=== PATIENT | male | born 1960 | race Caucasian/White ===

== ENCOUNTER 2019-08-05 16:47 | Emergency (ER) | payer SELFPAY ==
--- NOTE | 2019-08-05 18:06 | ER Document Report ---
ED Medical Screen (RME) - General Chief Complaint: Leg Swelling Stated Complaint: RIGHT LEG PAIN Time Seen by Provider: 08/05/19 18:01 Primary Care Provider: REGINA MANJARREZ [Primary Care Provider] - Follow up as needed Mode of Arrival: Ambulatory Information source: Patient Notes: 58-year-old male presented to ED for pain and swelling to the right leg. He states he was diagnosed with blood clots to the right leg 7 weeks ago. He was given a 5-week supply of Xarelto but he has since lost his insurance and has not followed up yet with the primary doctor. States he has been taking baby aspirin for the last 2 weeks. Patient has a history of coronary artery disease with 1 stent. He does have a history of elevated blood pressure and cholesterol that are controlled with his medication. He also has anxiety. Oriented respirations regular nonlabored. His right leg is bluish-purple but has a very good pedal pulse. It is very swollen. And purple-colored he said is been discolored for several weeks. I have greeted and performed a rapid initial assessment of this patient. A comprehensive ED assessment and evaluation of the patient, analysis of test results and completion of medical decision making process will be conducted by an additional ED providers. - Related Data Allergies/Adverse Reactions: No Known Allergies Allergy (Verified 08/05/19 17:59) Physical Exam - Vital signs Vitals: Temp Pulse Resp BP Pulse Ox 98.0 F 110 H 18 149/96 H 96 08/05/19 16:53 08/05/19 16:53 08/05/19 16:53 08/05/19 16:53 08/05/19 16:53 Course - Vital Signs Vital signs: Temp Pulse Resp BP Pulse Ox 98.0 F 110 H 18 149/96 H 96 08/05/19 16:53 08/05/19 16:53 08/05/19 16:53 08/05/19 16:53 08/05/19 16:53 Doctor's Discharge - Discharge Referrals: REGINA MANJARREZ [Primary Care Provider] - Follow up as needed
[2019-08-05 18:35] LABS: ABSOLUTE BASOPHILS # (AUTO) 0.1 10^3/uL (0.0-0.2); ABSOLUTE EOSINOPHILS # (AUTO) 0.5 10^3/uL (0.0-0.6); ABSOLUTE LYMPHOCYTES (AUTO) 1.6 10^3/uL (0.5-4.7); ABSOLUTE MONOCYTES (AUTO) 0.9 10^3/uL (0.1-1.4); ABSOLUTE NEUT (AUTO) 10.1 10^3/uL (1.7-8.2); BASOPHILS % (AUTO) 0.4 % (0-2); EOSINOPHILS % (AUTO) 3.6 % (0-6); HEMATOCRIT 42.2 % (37.9-51.0); HEMOGLOBIN 14.2 g/dL (13.5-17.0); LYMPHOCYTES % (AUTO) 12.1 % (13-45); MEAN CORPUSCULAR HEMOGLOBIN 30.9 pg (27.0-33.4); MEAN CORPUSCULAR HGB CONC 33.6 g/dL (32.0-36.0); MEAN CORPUSCULAR VOLUME 92 fl (80-97); MONOCYTES % (AUTO) 7.1 % (3-13); PLATELET COUNT 159 10^3/uL (150-450); RED CELL DISTRIBUTION WIDTH 14.1 % (11.5-14.0); SEGMENTED NEUTROPHILS % (AUTO) 76.8 % (42-78); TOTAL CELLS COUNTED % (AUTO) 100 %; WHITE BLOOD COUNT 13.2 10^3/uL (4.0-10.5)
[2019-08-05 18:41] LABS: INTERNATIONAL RATION (INR) 1.04; PROTHROMBIN TIME 13.6 SEC (11.4-15.4)
[2019-08-05 18:42] LABS: PARTIAL THROMBOPLASTIN TIME 26.7 SEC (23.5-35.8)
[2019-08-05] MEDS ORDERED: OXYCODONE-ACETAMINOPHEN 5-325 MG TABLET PO ONE (18:50)
[2019-08-05 18:52] LABS: ALBUMIN 4.3 g/dL (3.5-5.0); ALKALINE PHOSPHATASE 73 U/L (38-126); ANION GAP 11 (5-19); ASPARTATE AMINO TRANSFERASE 19 U/L (17-59); BILIRUBIN,DIRECT 0.1 mg/dL (0.0-0.4); BILIRUBIN,TOTAL 0.3 mg/dL (0.2-1.3); BLOOD UREA NITROGEN 16 mg/dL (7-20); CALCIUM 9.9 mg/dL (8.4-10.2); CARBON DIOXIDE 31 mmol/L (22-30); CHLORIDE 100 mmol/L (98-107); GLUCOSE 108 mg/dL (75-110); TOTAL PROTEIN 7.6 g/dL (6.3-8.2)
--- NOTE | 2019-08-05 19:24 | ER Document Report ---
Entered by NICHOLE CHAPA SCRIBE 08/05/19 0435 Acting as scribe for:VIANCA PEREYRA IV, MD ED Extremity Problem, Lower - General Chief Complaint: Leg Swelling Stated Complaint: RIGHT LEG PAIN Time Seen by Provider: 08/05/19 18:01 Primary Care Provider: RAJESH STUART MD [HONORARY] - Follow up as needed Mode of Arrival: Ambulatory Information source: Patient Notes: This 58 year old male patient that presents to the emergency department today with complaints of right lower extremity pain and swelling. Patient states that he was diagnosed with a DVT in the RLE in the past and has been on xarelto for this, but has not had any in the last two weeks. Patient states that he lost his job two weeks ago and now can't afford the medication. - Related Data Allergies/Adverse Reactions: No Known Allergies Allergy (Verified 08/05/19 17:59) Past Medical History - General Information source: Patient - Social History Smoking Status: Current Every Day Smoker Cigarette use (# per day): Yes Frequency of alcohol use: None Drug Abuse: None Lives with: Family Family History: Reviewed & Not Pertinent Patient has suicidal ideation: No Patient has homicidal ideation: No Review of Systems - Review of Systems Constitutional: No symptoms reported EENT: No symptoms reported Cardiovascular: No symptoms reported Respiratory: No symptoms reported Gastrointestinal: No symptoms reported Genitourinary: No symptoms reported Male Genitourinary: No symptoms reported Musculoskeletal: See HPI, Leg swelling - right Skin: No symptoms reported Hematologic/Lymphatic: No symptoms reported Neurological/Psychological: No symptoms reported -: Yes All other systems reviewed and negative Physical Exam - Vital signs Vitals: Temp Pulse Resp BP Pulse Ox 98.0 F 110 H 18 149/96 H 96 08/05/19 16:53 08/05/19 16:53 08/05/19 16:53 08/05/19 16:53 08/05/19 16:53 Interpretation: Normal - General General appearance: Appears well, Alert - HEENT Head: Normocephalic, Atraumatic Eyes: Normal Pupils: PERRL - Respiratory Respiratory status: No respiratory distress Chest status: Nontender Breath sounds: Normal Chest palpation: Normal - Cardiovascular Rhythm: Regular Heart sounds: Normal auscultation Murmur: No - Abdominal Inspection: Normal Distension: No distension Bowel sounds: Normal Tenderness: Nontender Organomegaly: No organomegaly - Back Back: Normal, Nontender - Extremities General upper extremity: Normal inspection. No: Tender General lower extremity: Tender - Right calf, Edema - RLE, Other - Purplish red discoloration of RLE - Neurological Neuro grossly intact: Yes Cognition: Normal Orientation: AAOx4 [place] Coma Scale Eye Opening: Spontaneous [place] Coma Scale Verbal: Oriented [place] Coma Scale Motor: Obeys Commands [place] Coma Scale Total: 15 Speech: Normal Motor strength normal: LUE, RUE, LLE, RLE Sensory: Normal - Psychological Associated symptoms: Normal affect, Normal mood - Skin Skin Temperature: Warm Skin Moisture: Dry Skin Color: Normal Course - Re-evaluation Re-evalutation: 08/05/19 19:58 Results of ED MSE discussed with patient. Patient was informed that social work will be getting touch with him tomorrow to help him with getting a continued supply of Xarelto since he currently does not have insurance and cannot afford to get it himself. Emergency signs and symptoms, reasons to return to the emergency department discussed with the patient. Patient expressed understanding of reasons to return to the ED. - Vital Signs Vital signs: Temp Pulse Resp BP Pulse Ox 98.0 F 110 H 18 149/96 H 96 08/05/19 17:59 08/05/19 16:53 08/05/19 17:59 08/05/19 16:53 08/05/19 17:59 - Laboratory Result Diagrams: 08/05/19 18:13 08/05/19 18:13 Laboratory results interpreted by me: 08/05/19 08/05/19 18:13 18:13 WBC 13.2 H RDW 14.1 H Lymph % (Auto) 12.1 L Absolute Neuts (auto) 10.1 H Carbon Dioxide 31 H - Diagnostic Test Radiology reviewed: Reports reviewed Discharge - Discharge Clinical Impression: Deep vein thrombosis, lower right extremity Qualifiers: Affected thrombotic vein of extremity: unspecified vein of extremity Chronicity: unspecified Qualified Code(s): I82.401 - Acute embolism and thrombosis of unspecified deep veins of right lower extremity Condition: Good Disposition: HOME, SELF-CARE Additional Instructions: Expect a call from [facility] social work department on 08/06/2019 to help you with assistance and getting a continued supply of your blood clot medication. If for any reason you do not hear from the social work department by noon tomorrow or are unable to get your medication filled return to the emergency department immediately. Return to the Emergency Department without delay if any worse. DVT Outpatient Treatment You have deep venous thrombosis (DVT) in your leg. DVT or phlebitis is blood clots within the large deep veins. This causes redness, warmth, and tenderness of the involved area. This problem is more likely to affect people who smoke, take estrogen, have had recent surgery, have been immobile, have had previous DVT, or who have serious underlying health conditions. Keep your legs elevated. A heating pad, 20 minutes every two hours, can help with leg pain. For now, keep walking to a minimum. Don't do any physical work, lifting, or exercise. If the doctor has recommended medication for you, it's important that you take it. You will be started on a blood-thinning medication. Follow-up is important. Your medication needs to be monitored. Call or return at once if you cough blood or vomit blood, pass black or bloody stool, or have any other unusual bleeding. DVT can cause serious complications. The clots can damage the valves in the veins, leading to chronic pain and swelling. If a clot breaks loose and floats upstream, it can stick in the lungs. A clot in the lungs, called pulmonary embolism, can be life-threatening. Call the doctor or return if you develop increasing leg pain and swelling, leg discoloration, fever, chest pain, or shortness of breath. HOME CARE INSTRUCTIONS & INFORMATION: Thank you for choosing us for your medical needs. We hope you're satisfied with the care you received. After you leave, you must properly care for your problem and, at the same time, observe its progress. Any condition can change. Some illnesses can change rapidly over hours or days. If your condition worsens, return to the Emergency Department or see your physician promptly. ABOUT YOUR X-RAYS AND EKG'S: If you had an EKG or X-rays taken, they have been read by the Emergency Physician. The X-rays and EKG's will also be read by a Radiologist or Auto Service Dispatcher within 24 hours. If discrepancies are noted, you will be notified by telephone. Please be certain the ED has a correct telephone number & address where you can be reached. Also, realize that some fractures or abnormalities do not show up on initial X-rays. If your symptoms continue, see your physician. ABOUT YOUR LABORATORY TEST: If you had laboratory tests, the results have been reviewed by the Emergency Physician. Some test results (for example cultures) may not be available for several days. You will be contacted if any test result shows you need additional treatment. Please be certain the ED has a correct telephone number and address where you can be reached. ABOUT YOUR MEDICATIONS: You will receive instructions on how to take your medicine on the prescription label you receive. Additional information may be provided by the Pharmacy. If you have questions afterwards, call the ED for clarification or further instructions. Some prescribed medications may cause drowsiness. Do not perform tasks such as driving a car or operating machinery without consulting your Pharmacist. If you feel you need a refill of pain medication, your condition will need re-evaluation. Please do not call for a refill of any medication. ABOUT YOUR SIGNATURE: Signature of this document acknowledges to followin. Understanding that you received emergency treatment and that you may be released before al medical problems are known or treated. Please be certain the ED has a correct phone number & address where you can be reached. 2. Acknowledgement that you will arrange for follow-up care as recommended. 3. Authorization for the Emergency Physician to provide information to your follow-up Physician in order to maximize your care. AT ANY TIME, IF YOUR SYMPTOMS CHANGE SIGNIFICANTLY OR WORSEN OR YOU DEVELOP NEW SYMPTOMS, RETURN TO THE EMERGENCY DEPARTMENT IMMEDIATELY FOR RE-EVALUATION. OUR GOAL IS TO PROVIDE EXCELLENT MEDICAL CARE! WE HOPE THAT WE HAVE MET YOUR EXPECTATIONS DURING YOUR EMERGENCY DEPARTMENT VISIT AND THAT YOU FEEL YOU HAVE RECEIVED EXCELLENT CARE! Prescriptions: Rivaroxaban [Xarelto] 15 mg PO BID 21 Days #42 tab.ds.pk Rivaroxaban [Xarelto 10 mg Tablet] 20 mg PO DAILY 9 Days #18 tablet Rivaroxaban [Xarelto 15 mg Tablet] 15 mg PO BID 21 Days #42 tablet Referrals: RAJESH STUART MD [HONORARY] - Follow up as needed I personally performed the services described in the documentation, reviewed and edited the documentation which was dictated to the scribe in my presence, and it accurately records my words and actions.
--- NOTE | 2019-08-05 19:48 | RADIOLOGY REPORT (SQ) ---
EXAM DESCRIPTION: VENOUS UNILATERAL LOWER COMPLETED DATE/TIME: 08/05/2019 7:31 pm REASON FOR STUDY: Right lower extremity COMPARISON: None. TECHNIQUE: Grayscale and color images acquired of the right leg venous system. Selected spectral ephraim ges acquired with additional compression and augmentation maneuvers. The contralateral common femoral vein and saphenofemoral junction were also imaged. Images stored on PACS. LIMITATIONS: None. FINDINGS: COMMON FEMORAL: There is hypoechoic occlusive thrombus. FEMORAL: There is hypoechoic occlusive thrombus. POPLITEAL: There is hypoechoic occlusive thrombus. CALF VESSELS: Hypoechoic thrombus at the posterior tibial and peroneal veins. GSV and SSV: Hypoechoic thrombus noted at the GSV and SSV. ANY DEEP VENOUS INSUFFICIENCY: Not evaluated. ANY EVIDENCE OF POPLITEAL CYST: No. CONTRALATERAL COMMON FEMORAL VEIN AND SAPHENOFEMORAL JUNCTION: Normal phasicity, compression and augmentation. No visualized echogenic material on mantilla scale. No de fects on color images. IMPRESSION: Acute deep vein thrombosis and superficial vein thrombosis throughout the visualized vei ns of the right leg. COMMENT: Pertinent findings on the imaging study reported as a CRITICAL RESULT to Dr. Sanchez At19:3 7 hours on 08/05/2019. Category of Critical Result: Acute DVT and SVT. TECHNICAL DOCUMENTATION: JOB ID: [id number] [employer]- All Rights Reserved Reading location - IP/workstation name: [email or web address]
[2019-08-05] MEDS ORDERED: HYDROCODONE/ACETAMINOPHEN 5-325 MG (6 TAB/ER DISP) PO PRN (19:57)
[2019-08-05] MEDS ORDERED: ENOXAPARIN SODIUM INJ 150 MG/1 ML DISP.SYRIN SUBCUT ONE (19:57)
[2019-08-05 20:56] VITALS: BP 168/96
== END 2019-08-05 21:18 | disposition home or self-care (01) ==
LOC: ER 16:47
DX: I82.401 Acute embolism and thrombosis of unspecified deep veins of right lower extremity (principal); M79.604 Pain in right leg; F17.210 Nicotine dependence, cigarettes, uncomplicated; Z86.718 Personal history of other venous thrombosis and embolism
CPT/HCPCS: 99284; 96372; 36415; 85025; 85610; 85730; 80053; 93971; J1650

== ENCOUNTER 2019-08-09 11:53 | Inpatient (IN) | payer SELFPAY ==
[2019-08-09] MEDS ORDERED: PROMETHAZINE HCL INJ 25 MG/1 ML VIAL IV PRN (12:30)
[2019-08-09] MEDS ORDERED: IPRATROPIUM/ALBUTEROL 0.5-2.5 MG/3 ML AMPUL NEB PRN (12:30)
[2019-08-09] MEDS ORDERED: PROMETHAZINE HCL 25 MG SUPP.RECT PR PRN (12:30)
[2019-08-09] MEDS ORDERED: ONDANSETRON HCL INJ/PF 4 MG/2 ML SDV IV PRN (12:30)
[2019-08-09] MEDS ORDERED: ACETAMINOPHEN 325 MG TABLET PO PRN (12:30)
[2019-08-09] MEDS ORDERED: TEMAZEPAM 7.5 MG CAPSULE PO PRN (12:30)
[2019-08-09] MEDS ORDERED: METOPROLOL TARTRATE PF/INJ 5 MG/5 ML SDV IV PRN (12:38)
[2019-08-09] MEDS ORDERED: HYDRALAZINE HCL INJ/PF 20 MG/1 ML SDV IV PRN (12:38)
[2019-08-09] MEDS ORDERED: HEPARIN SOD (PORCINE) 1,000 UNIT/ML 10 ML VIAL IV ONE (13:00)
[2019-08-09 13:52] LABS: ABSOLUTE EOSINOPHILS # (AUTO) 0.1 10^3/uL (0.0-0.6); ABSOLUTE LYMPHOCYTES (AUTO) 0.9 10^3/uL (0.5-4.7); ABSOLUTE MONOCYTES (AUTO) 1.2 10^3/uL (0.1-1.4); ABSOLUTE NEUT (AUTO) 9.5 10^3/uL (1.7-8.2); BASOPHILS % (AUTO) 0.4 % (0-2); EOSINOPHILS % (AUTO) 1.1 % (0-6); HEMATOCRIT 39.8 % (37.9-51.0); HEMOGLOBIN 13.4 g/dL (13.5-17.0); MEAN CORPUSCULAR HEMOGLOBIN 30.8 pg (27.0-33.4); MEAN CORPUSCULAR HGB CONC 33.8 g/dL (32.0-36.0); MEAN CORPUSCULAR VOLUME 91 fl (80-97); MONOCYTES % (AUTO) 9.9 % (3-13); PLATELET COUNT 202 10^3/uL (150-450); RED BLOOD COUNT 4.36 10^6/uL (4.35-5.55); RED CELL DISTRIBUTION WIDTH 13.8 % (11.5-14.0); SEGMENTED NEUTROPHILS % (AUTO) 80.6 % (42-78); TOTAL CELLS COUNTED % (AUTO) 100 %; WHITE BLOOD COUNT 11.7 10^3/uL (4.0-10.5)
[2019-08-09 14:02] LABS: INTERNATIONAL RATION (INR) 1.28; PROTHROMBIN TIME 16.1 SEC (11.4-15.4)
[2019-08-09 14:12] LABS: ALBUMIN 3.8 g/dL (3.5-5.0); ALKALINE PHOSPHATASE 63 U/L (38-126); ANION GAP 11 (5-19); ASPARTATE AMINO TRANSFERASE 16 U/L (17-59); BILIRUBIN,DIRECT 0.1 mg/dL (0.0-0.4); BILIRUBIN,TOTAL 0.7 mg/dL (0.2-1.3); BLOOD UREA NITROGEN 16 mg/dL (7-20); CALCIUM 9.8 mg/dL (8.4-10.2); CARBON DIOXIDE 31 mmol/L (22-30); CHLORIDE 98 mmol/L (98-107); GLUCOSE 105 mg/dL (75-110); POTASSIUM 3.5 mmol/L (3.6-5.0); TOTAL PROTEIN 7.1 g/dL (6.3-8.2)
--- NOTE | 2019-08-09 14:38 | RADIOLOGY REPORT (SQ) ---
EXAM DESCRIPTION: CTA CHEST COMPLETED DATE/TIME: 08/09/2019 2:13 pm REASON FOR STUDY: Extensive RLE DVT, SOB COMPARISON: None. TECHNIQUE: CT scan of the chest performed using helical scanning technique with dynamic intravenous contrast injection. Images reviewed with lung, soft tissue and bone windows. Reconstructed coronal and sagittal MPR images reviewed. Additional 3 dimensional post-processing performed to develop Maximal Intensity Projection images ([place] P). All images stored on PACS. All CT scanners at this facility use dose modulation, iterative reconstruction, and/or weight based d osing when appropriate to reduce radiation dose to as low as reasonably achievable (ALARA). [facility]: Dose Right [facility]: CareDose [facility]: Dose Right [facility]: Teradose 4D [facility]: D[employer] CONTRAST TYPE AND DOSE: contrast/concentration: Isovue 350.00 mg/ml; Total Contrast Delivered: 65.0 ml; Total Saline Delivered: 80.0 ml Contrast bolus optimized for the pulmonary arteries. Not diagnostic for the aorta. RENAL FUNCTION: None required. The patient is less than 50 years old. RADIATION DOSE: CT Rad equipment meets quality standard of care and radiation dose reduction techniq ues were employed. CTDIvol: 11.3 - 15.6 mGy. DLP: 634 mGy-cm. . LIMITATIONS: Poor contrast bolus, main pulmonary artery HU = 119 FINDINGS: LUNGS AND PLEURA: No masses, infiltrates, or pneumothorax. No pleural effusions or pleura l calcifications. AORTA AND GREAT VESSELS: No aneurysm. Contrast bolus not optimized for the aorta. HEART: No pericardial effusion. Extensive left coronary artery calcifications. PULMONARY ARTERIES: Examination for pulmonary embolism is very limited by poor contrast bolus, main p ulmonary artery HU = 119. Limitation, there are areas of low-attenuation that are suspicious for pul monary embolism, for example in the left lower lobe (series 3, image 70, series 601, 67). HILAR AND MEDIASTINAL STRUCTURES: No identified masses or abnormal nodes. HARDWARE: None in the chest. UPPER ABDOMEN: No significant findings. Limited exam. THYROID AND OTHER SOFT TISSUES: No masses. No adenopathy. BONES: No acute or significant finding. 3D MIPS: Confirm above findings. OTHER: No other significant finding. IMPRESSION: 1. Examination for pulmonary embolism is very limited by poor contrast bolus, main pul monary artery HU = 119. Limitation, there are areas of low-attenuation that are suspicious for pulmon rogers embolism, for example in the left lower lobe (series 3, image 70, series 601, 67). Recommend rep eat CT to further evaluate. Pulmonary VQ scan is an alternative option. 2. Coronary artery disease. COMMENT: Quality ID # [id number]: Final reports with documentation of one or more dose reduction techniques (e.g., Automated exposure control, adjustment of the mA and/or kV according to patient size, use of iterative reconstruction technique) TECHNICAL DOCUMENTATION: JOB ID: [id number] [employer]- All Rights Reserved Reading location - IP/workstation name: [email or web address]
[2019-08-09] MEDS: HEPARIN SODIUM,PORCINE/D5W 25,000 UNIT/250 ML RTUINJ IV PRN (15:01)
[2019-08-09] MEDS: MORPHINE SULFATE 10 MG/ML INJ IV PRN (15:21)
[2019-08-09] MEDS ORDERED: HEPARIN SOD (PORCINE) 1,000 UNIT/ML 10 ML VIAL IV PRN (15:29)
[2019-08-09 15:36] LABS: APPEARANCE,URINE SLIGHTLY-CLOUDY; BILIRUBIN,URINE NEGATIVE (NEGATIVE); COLOR,URINE AMBER; GLUCOSE, URINE NEGATIVE (NEGATIVE); KETONES,URINE NEGATIVE (NEGATIVE); LEUKOCYTE ESTERASE,URINE NEGATIVE (NEGATIVE); NITRITE,URINE NEGATIVE (NEGATIVE); PROTEIN,URINE 100 mg/dL (NEGATIVE); URINE SPECIFIC GRAVITY 1.035
--- NOTE | 2019-08-09 16:16 | PDOC H&P ---
History of Present Illness Admission Date/PCP: 08/09/19 11:53 History of Present Illness: CANDY MATTHEWS is a 58 year old male past medical history of CAD status post stent placement 2001, hypertension, dyslipidemia, recently diagnosed with DVT and was home sent home on Xarelto. Patient took about 1 month of Xarelto ran out and was not taking Xarelto for 2 weeks. Patient presented to ED at [facility] last Tuesday and was sent home again on Xarelto. Patient has been taking her Xarelto since then however today when he presented to his follow-up appointment with Dr. Dominic Mcnally vascular surgeon he was noted to have extensive right lower extremity swelling, tenderness and an ultrasound was positive for multiple new DVTs. Dr. Dominic Fajardo contacted me and asked for patient to be admitted to the hospital. Patient is stating that first DVT was caused by a fall last February when he fell in the shower hurting his hip. He received multiple injection in his hip which improved his pain but he developed DVT on that leg. He is complaining of right lower extremity swelling, right groin pain, nonradiating, deep and aching, worse with ambulation, 10/10 in severity scale when ambulating, 8/10 with at rest. Denies any shortness of breath, fever, chills, nausea, vomiting, diarrhea, con stipation, numbness, tingling, headache, vision changes, or any urinary symptoms. Past Medical History Cardiac Medical History: Reports: Coronary Artery Disease, DVT, Hyperlipidema, Peripheral Vascular Disease GI Medical History: Reports: Hiatal Hernia Musculoskeltal Medical History: Reports: Arthritis Past Surgical History Past Surgical History: Reports: Cardiac Catheterization - stent, Orthopedic Surgery - right knee Social History Smoking Status: Former Smoker Electronic Cigarette use?: No Number of Years Smokin Frequency of Alcohol Use: None Hx Recreational Drug Use: No Drugs: None Hx Prescription Drug Abuse: No Family History Family History: Reviewed & Not Pertinent Parental Family History Reviewed: Yes Children Family History Reviewed: Yes Sibling(s) Family History Reviewed.: Yes Medication/Allergy Home Medications: Esomeprazole Magnesium [Nexium] 40 mg PO QHS 08/09/19 Lisinopril 20 mg PO QHS 08/09/19 Metoprolol Succinate [Toprol Xl 50 mg Tab.sr] 50 mg PO QHS 08/09/19 Rivaroxaban [Xarelto 15 mg Tablet] 15 mg PO Q12 08/09/19 Rosuvastatin Calcium [Crestor] 40 mg PO QHS 08/09/19 Sertraline HCl [Zoloft] 200 mg PO QHS 08/09/19 Allergies/Adverse Reactions: No Known Allergies Allergy (Verified 08/05/19 17:59) Physical Exam Vital Signs: Temp Pulse Resp BP Pulse Ox 98.3 F 117 H 20 156/89 H 94 08/09/19 12:04 08/09/19 14:03 08/09/19 12:04 08/09/19 12:04 08/09/19 12:04 Intake & Output 08/08/19 08/09/19 08/10/19 06:59 06:59 06:59 Weight 132.8 kg General appearance: PRESENT: mild distress, obese Respiratory exam: PRESENT: clear to auscultation devi. ABSENT: rales, rhonchi, wheezes Cardiovascular exam: PRESENT: RRR. ABSENT: diastolic murmur, rubs, systolic murmur GI/Abdominal exam: PRESENT: normal bowel sounds, soft. ABSENT: distended, guarding, mass, organolmegaly, rebound, tenderness Extremities exam: PRESENT: tenderness, +1 edema, other - Right lower extremity extensive swelling, tender to palpation over the groin and proximal left lower extremity. No sign of active infection or discharge. Neurovascularly intact. Results Laboratory Results: 08/09/19 13:26 08/09/19 13:26 08/09/19 08/09/19 08/09/19 13:26 13:26 14:00 WBC 11.7 H RBC 4.36 Hgb 13.4 L Hct 39.8 MCV 91 MCH 30.8 MCHC 33.8 RDW 13.8 Plt Count 202 Seg Neutrophils % 80.6 H Sodium 140.0 Potassium 3.5 L Chloride 98 Carbon Dioxide 31 H Anion Gap 11 BUN 16 Creatinine 0.80 Est GFR ( Amer) > 60 Glucose 105 Calcium 9.8 Total Bilirubin 0.7 AST 16 L Alkaline Phosphatase 63 Total Protein 7.1 Albumin 3.8 Urine Color REGINALDO Urine Appearance SLIGHTLY-CLOUDY Urine pH 6.0 Ur Specific [place] 1.035 Urine Protein 100 H Urine Glucose (UA) NEGATIVE Urine Ketones NEGATIVE Urine Blood NEGATIVE Urine Nitrite NEGATIVE Ur Leukocyte Esterase NEGATIVE Urine WBC (Auto) 2 Urine RBC (Auto) 1 Impressions: Chest/Abdomen CTA 08/09/19 00:00 IMPRESSION: 1. Examination for pulmonary embolism is very limited by poor contrast bolus, main pulmonary artery HU = 119. Limitation, there are areas of low-attenuation that are suspicious for pulmonary embolism, for example in the left lower lobe (series 3, image 70, series 601, 67). Recommend repeat CT to further evaluate. Pulmonary VQ scan is an alternative option. 2. Coronary artery disease. Assessment and Plan - Diagnosis (1) Deep vein thrombosis, lower right extremity Qualifiers: Affected thrombotic vein of extremity: unspecified vein of extremity Chronicity: unspecified Qualified Code(s): I82.401 - Acute embolism and thrombosis of unspecified deep veins of right lower extremity Is this a current diagnosis for this admission?: Yes Plan: Worsened due to noncompliance. Admit to telemetry, IV heparin, elevate lower extremities, monitor vitals, venous ultrasound for evaluation of DVT, CTA to rule out PE. Consult discharge planning for medication assistance. I have discussed the patient if he was not able to afford NOACs he could be switched to Coumadin and the patient has voiced understanding. (2) Hypertension Is this a current diagnosis for this admission?: Yes Plan: Euvolemic. Normotensive. Restart home meds. Adjust meds as needed. Outpatient PCP follow-up. (3) CAD (coronary artery disease) Is this a current diagnosis for this admission?: Yes Plan: Status post PCI 1 stent placement. Denies any anginal symptoms. Restart antiplatelets, KALYN, beta-blockers, statins. (4) Dyslipidemia Is this a current diagnosis for this admission?: Yes Plan: Restart home meds. (5) Morbid obesity with BMI of 40.0-44.9, adult Is this a current diagnosis for this admission?: Yes Plan: Diet and lifestyle modification recommended. Likely a candidate for bariatric intervention. We will obtain TSH and A1c.
[2019-08-09] MEDS: DOCUSATE SODIUM 100 MG CAPSULE PO SCH (18:34)
[2019-08-09] MEDS: PANTOPRAZOLE SODIUM 40 MG TABLET.DR PO SCH (18:34)
--- NOTE | 2019-08-09 20:47 | RADIOLOGY REPORT (SQ) ---
VENTILATION/PERFUSION SCAN HISTORY: Shortness of breath. TECHNIQUE: The patient received 31.2 mCi of Tc-99m DTPA aerosol via inhalation and 5.38 mCi of technetium-99m MAA intravenously. Multiple ventilation and perfusion views of the chest were obtained. FINDINGS: The perfusion images show homogeneous distribution of the radiotracer in both lungs. The ventilation images show homogeneous distribution of the radiotracer in both lungs. No mismatched ventilation/perfusion defects are identified. Incidentally noted is tracer within the stomach consistent with partial ingestion. IMPRESSION: No evidence of pulmonary embolism.
[2019-08-09] MEDS: METOPROLOL SUCCINATE 50 MG TAB.SR.24H PO SCH (21:39)
[2019-08-09] MEDS: SERTRALINE HCL 50 MG TABLET PO SCH (21:40)
[2019-08-09] MEDS: LISINOPRIL 10 MG TABLET PO SCH (21:40)
[2019-08-09] MEDS ORDERED: (PENDING PHARMACY ID) (Lisinopril [Lisinopril] 20 MG) PO SCH (22:00)
[2019-08-09] MEDS ORDERED: (PENDING PHARMACY ID) (Sertraline Hcl [Zoloft] 200 MG) PO SCH (22:00)
[2019-08-10] MEDS: HEPARIN SODIUM,PORCINE/D5W 25,000 UNIT/250 ML RTUINJ IV PRN (03:34)
[2019-08-10 04:33] LABS: ABSOLUTE BASOPHILS # (AUTO) 0.1 10^3/uL (0.0-0.2); ABSOLUTE EOSINOPHILS # (AUTO) 0.3 10^3/uL (0.0-0.6); ABSOLUTE LYMPHOCYTES (AUTO) 1.9 10^3/uL (0.5-4.7); ABSOLUTE MONOCYTES (AUTO) 1.2 10^3/uL (0.1-1.4); ABSOLUTE NEUT (AUTO) 5.8 10^3/uL (1.7-8.2); BASOPHILS % (AUTO) 0.6 % (0-2); EOSINOPHILS % (AUTO) 3.6 % (0-6); HEMATOCRIT 36.5 % (37.9-51.0); HEMOGLOBIN 12.7 g/dL (13.5-17.0); LYMPHOCYTES % (AUTO) 20.2 % (13-45); MEAN CORPUSCULAR HEMOGLOBIN 31.4 pg (27.0-33.4); MEAN CORPUSCULAR HGB CONC 34.7 g/dL (32.0-36.0); MEAN CORPUSCULAR VOLUME 90 fl (80-97); MONOCYTES % (AUTO) 13.1 % (3-13); PLATELET COUNT 209 10^3/uL (150-450); RED BLOOD COUNT 4.03 10^6/uL (4.35-5.55); RED CELL DISTRIBUTION WIDTH 13.6 % (11.5-14.0); SEGMENTED NEUTROPHILS % (AUTO) 62.5 % (42-78); TOTAL CELLS COUNTED % (AUTO) 100 %; WHITE BLOOD COUNT 9.2 10^3/uL (4.0-10.5)
[2019-08-10 04:57] LABS: ALBUMIN 3.5 g/dL (3.5-5.0); ALKALINE PHOSPHATASE 63 U/L (38-126); ANION GAP 11 (5-19); ASPARTATE AMINO TRANSFERASE 15 U/L (17-59); BILIRUBIN,DIRECT 0.2 mg/dL (0.0-0.4); BILIRUBIN,TOTAL 0.6 mg/dL (0.2-1.3); BLOOD UREA NITROGEN 14 mg/dL (7-20); CALCIUM 9.4 mg/dL (8.4-10.2); CARBON DIOXIDE 32 mmol/L (22-30); CHLORIDE 96 mmol/L (98-107); GLUCOSE 100 mg/dL (75-110); POTASSIUM 3.7 mmol/L (3.6-5.0); TOTAL PROTEIN 6.7 g/dL (6.3-8.2)
[2019-08-10] MEDS: MORPHINE SULFATE 10 MG/ML INJ IV PRN ×2 (05:32→09:36)
[2019-08-10] MEDS: PANTOPRAZOLE SODIUM 40 MG TABLET.DR PO SCH ×2 (05:33→18:04)
--- NOTE | 2019-08-10 06:53 | EKG REPORT ---
SEVERITY:- ABNORMAL ECG - SINUS RHYTHM PROBABLE LEFT ATRIAL ABNORMALITY INCOMPLETE RIGHT BUNDLE BRANCH BLOCK : Confirmed by: Jose Davis MD 10-Aug-2019 06:52:42
[2019-08-10 07:27] LABS: APPEARANCE,URINE CLEAR; BILIRUBIN,URINE NEGATIVE (NEGATIVE); COLOR,URINE YELLOW; GLUCOSE, URINE NEGATIVE (NEGATIVE); KETONES,URINE NEGATIVE (NEGATIVE); LEUKOCYTE ESTERASE,URINE NEGATIVE (NEGATIVE); NITRITE,URINE NEGATIVE (NEGATIVE); PROTEIN,URINE NEGATIVE (NEGATIVE); URINE SPECIFIC GRAVITY 1.015; UROBILINOGEN,URINE NEGATIVE mg/dL (<2.0)
[2019-08-10] MEDS: DOCUSATE SODIUM 100 MG CAPSULE PO SCH ×2 (09:36→18:04)
--- NOTE | 2019-08-10 12:51 | PDOC PROGRESS REPORT ---
Subjective Progress Note for:: 08/10/19 Subjective:: CANDY MATTHEWS is a 58 year old male past medical history of CAD status post stent placement 2001, hypertension, dyslipidemia, recently diagnosed with DVT and was home sent home on Xarelto. Patient took about 1 month of Xarelto ran out and was not taking Xarelto for 2 weeks. Patient presented to ED at [facility] last Tuesday and was sent home again on Xarelto. Patient has been taking her Xarelto since then however today when he presented to his follow-up appointment with Dr. Dominic Mcnally vascular surgeon he was noted to have extensive right lower extremity swelling, tenderness and an ultrasound was positive for multiple new DVTs. Dr. Dominic Fajardo contacted me and asked for patient to be admitted to the hospital. Patient is stating that first DVT was caused by a fall last February when he fell in the shower hurting his hip. He received multiple injection in his hip which improved his pain but he developed DVT on that leg. He is complaining of right lower extremity swelling, right groin pain, nonradiating, deep and aching, worse with ambulation, 10/10 in severity scale when ambulating, 8/10 with at rest. Denies any shortness of breath, fever, chills, nausea, vomiting, diarrhea, constipation, numbness, tingling, headache, vision changes, or any urinary symptoms. 08/10/2019. No acute events overnight. Still complaining of right lower extremity swelling and pain, denies any shortness of breath, chest pain nausea, vomiting, diarrhea or any urinary symptoms. Reason For Visit: DVT Physical Exam Vital Signs: Temp Pulse Resp BP Pulse Ox 98.5 F 73 16 142/88 H 93 08/10/19 08:38 08/10/19 08:38 08/10/19 08:38 08/10/19 08:38 08/10/19 08:38 Intake & Output 08/09/19 08/10/19 08/11/19 06:59 06:59 06:59 Intake Total 726 Output Total 350 Balance 376 Weight 132.8 kg General appearance: PRESENT: obese Head exam: PRESENT: atraumatic, normocephalic Respiratory exam: PRESENT: clear to auscultation devi. ABSENT: rales, rhonchi, wheezes Cardiovascular exam: PRESENT: RRR. ABSENT: diastolic murmur, rubs, systolic murmur GI/Abdominal exam: PRESENT: normal bowel sounds, soft. ABSENT: distended, guarding, mass, organolmegaly, rebound, tenderness Musculoskeletal exam: PRESENT: other - Right lower extremity diffuse swelling, tenderness. Neurovascularly intact. Results Laboratory Results: 08/10/19 03:36 08/10/19 03:36 08/09/19 08/09/19 08/09/19 13:26 13:26 14:00 WBC 11.7 H RBC 4.36 Hgb 13.4 L Hct 39.8 MCV 91 MCH 30.8 MCHC 33.8 RDW 13.8 Plt Count 202 Seg Neutrophils % 80.6 H Sodium 140.0 Potassium 3.5 L Chloride 98 Carbon Dioxide 31 H Anion Gap 11 BUN 16 Creatinine 0.80 Est GFR ( Amer) > 60 Glucose 105 Calcium 9.8 Magnesium Total Bilirubin 0.7 AST 16 L Alkaline Phosphatase 63 Total Protein 7.1 Albumin 3.8 TSH Urine Color REGINALDO Urine Appearance SLIGHTLY-CLOUDY Urine pH 6.0 Ur Specific [place] 1.035 Urine Protein 100 H Urine Glucose (UA) NEGATIVE Urine Ketones NEGATIVE Urine Blood NEGATIVE Urine Nitrite NEGATIVE Ur Leukocyte Esterase NEGATIVE Urine WBC (Auto) 2 Urine RBC (Auto) 1 08/09/19 08/10/19 08/10/19 19:14 03:36 03:36 WBC 9.2 RBC 4.03 L Hgb 12.7 L Hct 36.5 L MCV 90 MCH 31.4 MCHC 34.7 RDW 13.6 Plt Count 209 Seg Neutrophils % 62.5 Sodium 139.1 Potassium 3.7 Chloride 96 L Carbon Dioxide 32 H Anion Gap 11 BUN 14 Creatinine 0.84 Est GFR ( Amer) > 60 Glucose 100 Calcium 9.4 Magnesium 1.9 Total Bilirubin 0.6 AST 15 L Alkaline Phosphatase 63 Total Protein 6.7 Albumin 3.5 TSH 1.70 Urine Color Urine Appearance Urine pH Ur Specific [place] Urine Protein Urine Glucose (UA) Urine Ketones Urine Blood Urine Nitrite Ur Leukocyte Esterase Urine WBC (Auto) Urine RBC (Auto) 08/10/19 07:05 WBC RBC Hgb Hct MCV MCH MCHC RDW Plt Count Seg Neutrophils % Sodium Potassium Chloride Carbon Dioxide Anion Gap BUN Creatinine Est GFR ( Amer) Glucose Calcium Magnesium Total Bilirubin AST Alkaline Phosphatase Total Protein Albumin TSH Urine Color YELLOW Urine Appearance CLEAR Urine pH 6.0 Ur Specific [place] 1.015 Urine Protein NEGATIVE Urine Glucose (UA) NEGATIVE Urine Ketones NEGATIVE Urine Blood NEGATIVE Urine Nitrite NEGATIVE Ur Leukocyte Esterase NEGATIVE Urine WBC (Auto) 2 Urine RBC (Auto) 1 Impressions: Chest/Abdomen CTA 08/09/19 00:00 IMPRESSION: 1. Examination for pulmonary embolism is very limited by poor contrast bolus, main pulmonary artery HU = 119. Limitation, there are areas of low-attenuation that are suspicious for pulmonary embolism, for example in the left lower lobe (series 3, image 70, series 601, 67). Recommend repeat CT to further evaluate. Pulmonary VQ scan is an alternative option. 2. Coronary artery disease. Lung Scan-VQ NM 08/09/19 19:00 IMPRESSION: No evidence of pulmonary embolism. Assessment and Plan - Diagnosis (1) Deep vein thrombosis, lower right extremity Qualifiers: Affected thrombotic vein of extremity: unspecified vein of extremity Chronicity: unspecified Qualified Code(s): I82.401 - Acute embolism and thrombosis of unspecified deep veins of right lower extremity Is this a current diagnosis for this admission?: Yes Plan: Worsened due to noncompliance. Patient was off of her anticoagulation for 2 weeks. Continue telemetry, low molecular weight heparin weight dosed, elevate lower extremities, monitor vitals. 08/05/2019. Right lower extremity venous Doppler positive for acute deep chronic thrombosis and superficial vein thrombosis throughout the visualized veins of the leg. 08/09/2019. CTA chest inconclusive due to late bolus. 08/09/2019. VQ scan negative for any acute pulmonary emboli. Consult discharge planning for medication assistance. I have discussed the patient if he was not able to afford NOACs he could be switched to Coumadin and the patient has voiced understanding. (2) Hypertension Is this a current diagnosis for this admission?: Yes Plan: Euvolemic. Normotensive. Restart home meds. Adjust meds as needed. Outpatient PCP follow-up. (3) CAD (coronary artery disease) Is this a current diagnosis for this admission?: Yes Plan: Status post PCI 1 stent placement. Denies any anginal symptoms. Restart antiplatelets, KALYN, beta-blockers, statins. (4) Dyslipidemia Is this a current diagnosis for this admission?: Yes Plan: Restart home meds. (5) Morbid obesity with BMI of 40.0-44.9, adult Is this a current diagnosis for this admission?: Yes Plan: Diet and lifestyle modification recommended. Likely a candidate for bariatric intervention. TSH 1.70. Hemoglobin A1c 6.1. (6) Pre-diabetes Is this a current diagnosis for this admission?: Yes Plan: Hemoglobin A1c 6.1%. Diet and lifestyle modification recommended. Outpatient PCP follow-up for reevaluation of A1c.
[2019-08-10] MEDS: ENOXAPARIN SODIUM INJ 150 MG/1 ML DISP.SYRIN SUBCUT SCH (18:05)
[2019-08-10] MEDS: OXYCODONE-ACETAMINOPHEN 5-325 MG TABLET PO PRN ×2 (18:12→23:34)
[2019-08-10 18:13] LABS: APPEARANCE,URINE CLEAR; BILIRUBIN,URINE NEGATIVE (NEGATIVE); COLOR,URINE STRAW; GLUCOSE, URINE NEGATIVE (NEGATIVE); KETONES,URINE NEGATIVE (NEGATIVE); LEUKOCYTE ESTERASE,URINE NEGATIVE (NEGATIVE); NITRITE,URINE NEGATIVE (NEGATIVE); PROTEIN,URINE NEGATIVE (NEGATIVE); URINE SPECIFIC GRAVITY 1.004; UROBILINOGEN,URINE NEGATIVE mg/dL (<2.0)
[2019-08-10] MEDS: SERTRALINE HCL 50 MG TABLET PO SCH (21:34)
[2019-08-10] MEDS: METOPROLOL SUCCINATE 50 MG TAB.SR.24H PO SCH (21:35)
[2019-08-10] MEDS: LISINOPRIL 10 MG TABLET PO SCH (21:35)
[2019-08-11 05:08] LABS: ABSOLUTE BASOPHILS # (AUTO) 0.1 10^3/uL (0.0-0.2); ABSOLUTE EOSINOPHILS # (AUTO) 0.4 10^3/uL (0.0-0.6); ABSOLUTE LYMPHOCYTES (AUTO) 1.7 10^3/uL (0.5-4.7); ABSOLUTE MONOCYTES (AUTO) 1.2 10^3/uL (0.1-1.4); ABSOLUTE NEUT (AUTO) 6.8 10^3/uL (1.7-8.2); EOSINOPHILS % (AUTO) 3.7 % (0-6); HEMATOCRIT 37.9 % (37.9-51.0); HEMOGLOBIN 13.1 g/dL (13.5-17.0); LYMPHOCYTES % (AUTO) 16.4 % (13-45); MEAN CORPUSCULAR HEMOGLOBIN 31.3 pg (27.0-33.4); MEAN CORPUSCULAR HGB CONC 34.4 g/dL (32.0-36.0); MEAN CORPUSCULAR VOLUME 91 fl (80-97); MONOCYTES % (AUTO) 12.1 % (3-13); PLATELET COUNT 245 10^3/uL (150-450); RED BLOOD COUNT 4.18 10^6/uL (4.35-5.55); RED CELL DISTRIBUTION WIDTH 13.4 % (11.5-14.0); SEGMENTED NEUTROPHILS % (AUTO) 66.8 % (42-78); TOTAL CELLS COUNTED % (AUTO) 100 %; WHITE BLOOD COUNT 10.2 10^3/uL (4.0-10.5)
[2019-08-11 05:24] LABS: ANION GAP 11 (5-19); BLOOD UREA NITROGEN 12 mg/dL (7-20); CALCIUM 9.5 mg/dL (8.4-10.2); CARBON DIOXIDE 30 mmol/L (22-30); CHLORIDE 98 mmol/L (98-107); GLUCOSE 113 mg/dL (75-110); POTASSIUM 4.3 mmol/L (3.6-5.0)
[2019-08-11] MEDS: ENOXAPARIN SODIUM INJ 150 MG/1 ML DISP.SYRIN SUBCUT SCH (05:50)
[2019-08-11] MEDS: PANTOPRAZOLE SODIUM 40 MG TABLET.DR PO SCH ×2 (05:51→17:05)
[2019-08-11] MEDS: OXYCODONE-ACETAMINOPHEN 5-325 MG TABLET PO PRN ×3 (05:51→18:46)
[2019-08-11] MEDS: DOCUSATE SODIUM 100 MG CAPSULE PO SCH ×3 (10:54→18:43)
--- NOTE | 2019-08-11 11:13 | PDOC PROGRESS REPORT ---
Subjective Progress Note for:: 08/11/19 Subjective:: CANDY MATTHEWS is a 58 year old male past medical history of CAD status post stent placement 2001, hypertension, dyslipidemia, recently diagnosed with DVT and was home sent home on Xarelto. Patient took about 1 month of Xarelto ran out and was not taking Xarelto for 2 weeks. Patient presented to ED at [facility] last Tuesday and was sent home again on Xarelto. Patient has been taking her Xarelto since then however today when he presented to his follow-up appointment with Dr. Dominic Mcnally vascular surgeon he was noted to have extensive right lower extremity swelling, tenderness and an ultrasound was positive for multiple new DVTs. Dr. Dominic Fajardo contacted me and asked for patient to be admitted to the hospital. Patient is stating that first DVT was caused by a fall last February when he fell in the shower hurting his hip. He received multiple injection in his hip which improved his pain but he developed DVT on that leg. He is complaining of right lower extremity swelling, right groin pain, nonradiating, deep and aching, worse with ambulation, 10/10 in severity scale when ambulating, 8/10 with at rest. Denies any shortness of breath, fever, chills, nausea, vomiting, diarrhea, constipation, numbness, tingling, headache, vision changes, or any urinary symptoms. 08/10/2019. No acute events overnight. Still complaining of right lower extremity swelling and pain, denies any shortness of breath, chest pain nausea, vomiting, diarrhea or any urinary symptoms. 08/11/2019. No acute events overnight. Still complaining of right lower extremity pain worse with ambulation and swelling but improved since yesterday. Denies any fever, chills, nausea, vomiting, diarrhea, constipation or any urinary symptoms. Reason For Visit: DVT Physical Exam Vital Signs: Temp Pulse Resp BP Pulse Ox 98.5 F 76 28 H 129/82 H 93 08/11/19 08:00 08/11/19 08:00 08/11/19 08:00 08/11/19 08:00 08/11/19 08:00 Intake & Output 08/10/19 08/11/19 08/12/19 06:59 06:59 06:59 Intake Total 726 2114 Output Total 350 1050 Balance 376 1064 Weight 132.8 kg 126.3 kg 126.3 kg General appearance: PRESENT: no acute distress, obese, well-developed, well- nourished Head exam: PRESENT: atraumatic, normocephalic Respiratory exam: PRESENT: clear to auscultation devi. ABSENT: rales, rhonchi, wheezes Cardiovascular exam: PRESENT: RRR. ABSENT: diastolic murmur, rubs, systolic murmur Pulses: PRESENT: normal dorsalis pedis pul Musculoskeletal exam: PRESENT: tenderness - Right lower extremity swelling, and tenderness neurovascularly intact. Results Laboratory Results: 08/11/19 04:22 08/11/19 04:22 08/10/19 08/11/19 08/11/19 17:15 04:22 04:22 WBC 10.2 RBC 4.18 L Hgb 13.1 L Hct 37.9 MCV 91 MCH 31.3 MCHC 34.4 RDW 13.4 Plt Count 245 Seg Neutrophils % 66.8 Sodium 138.6 Potassium 4.3 Chloride 98 Carbon Dioxide 30 Anion Gap 11 BUN 12 Creatinine 0.66 Est GFR ( Amer) > 60 Glucose 113 H Calcium 9.5 Urine Color STRAW Urine Appearance CLEAR Urine pH 6.0 Ur Specific [place] 1.004 Urine Protein NEGATIVE Urine Glucose (UA) NEGATIVE Urine Ketones NEGATIVE Urine Blood SMALL H Urine Nitrite NEGATIVE Ur Leukocyte Esterase NEGATIVE Urine WBC (Auto) 0 Impressions: Chest/Abdomen CTA 08/09/19 00:00 IMPRESSION: 1. Examination for pulmonary embolism is very limited by poor contrast bolus, main pulmonary artery HU = 119. Limitation, there are areas of low-attenuation that are suspicious for pulmonary embolism, for example in the left lower lobe (series 3, image 70, series 601, 67). Recommend repeat CT to further evaluate. Pulmonary VQ scan is an alternative option. 2. Coronary artery disease. Lung Scan-VQ NM 08/09/19 19:00 IMPRESSION: No evidence of pulmonary embolism. Assessment and Plan - Diagnosis (1) Deep vein thrombosis, lower right extremity Qualifiers: Affected thrombotic vein of extremity: unspecified vein of extremity Chronicity: unspecified Qualified Code(s): I82.401 - Acute embolism and thrombosis of unspecified deep veins of right lower extremity Is this a current diagnosis for this admission?: Yes Plan: Worsened due to noncompliance. Patient was off of her anticoagulation for 2 weeks. Continue telemetry, switch LMWH to Xarelto, elevate lower extremities, monitor vitals. 08/05/2019. Right lower extremity venous Doppler positive for acute deep chronic thrombosis and superficial vein thrombosis throughout the visualized veins of the leg. 08/09/2019. CTA chest inconclusive due to late bolus. 08/09/2019. VQ scan negative for any acute pulmonary emboli. Discharge planning consulted. Patient provided with resources for his follow-up and medication assistance. Patient extensively counseled about compliance with his blood thinners. Patient voiced understanding. Does not want to be placed on Coumadin. (2) Hypertension Is this a current diagnosis for this admission?: Yes Plan: Euvolemic. Normotensive. Restart home meds. Adjust meds as needed. Outpatient PCP follow-up. (3) CAD (coronary artery disease) Is this a current diagnosis for this admission?: Yes Plan: Status post PCI 1 stent placement. Denies any anginal symptoms. Restart antiplatelets, KALYN, beta-blockers, statins. (4) Dyslipidemia Is this a current diagnosis for this admission?: Yes Plan: Restart home meds. (5) Morbid obesity with BMI of 40.0-44.9, adult Is this a current diagnosis for this admission?: Yes Plan: Diet and lifestyle modification recommended. Likely a candidate for bariatric intervention. TSH 1.70. Hemoglobin A1c 6.1. (6) Pre-diabetes Is this a current diagnosis for this admission?: Yes Plan: Hemoglobin A1c 6.1%. Diet and lifestyle modification recommended. Outpatient PCP follow-up for reevaluation of A1c.
[2019-08-11] MEDS: RIVAROXABAN 15 MG TABLET PO SCH ×2 (12:18→18:43)
[2019-08-11] MEDS: LISINOPRIL 10 MG TABLET PO SCH (22:39)
[2019-08-11] MEDS: SERTRALINE HCL 50 MG TABLET PO SCH (22:39)
[2019-08-11] MEDS: METOPROLOL SUCCINATE 50 MG TAB.SR.24H PO SCH (22:39)
[2019-08-12] MEDS: OXYCODONE-ACETAMINOPHEN 5-325 MG TABLET PO PRN (03:55)
[2019-08-12] MEDS: PANTOPRAZOLE SODIUM 40 MG TABLET.DR PO SCH (06:00)
[2019-08-12] MEDS: RIVAROXABAN 15 MG TABLET PO SCH (09:08)
[2019-08-12 10:25] VITALS: BP 129/82
[2019-08-12] MEDS: DOCUSATE SODIUM 100 MG CAPSULE PO SCH (10:59)
--- NOTE | 2019-08-12 17:48 | PDOC DISCHARGE SUMMARY ---
Impression - Admit/DC Date/PCP Admission Date/Primary Care Provider: 08/09/19 11:53 Discharge Date: 08/12/19 - Discharge Diagnosis (1) Deep vein thrombosis, lower right extremity Is this a current diagnosis for this admission?: Yes (2) Hypertension Is this a current diagnosis for this admission?: Yes (3) CAD (coronary artery disease) Is this a current diagnosis for this admission?: Yes (4) Dyslipidemia Is this a current diagnosis for this admission?: Yes (5) Morbid obesity with BMI of 40.0-44.9, adult Is this a current diagnosis for this admission?: Yes (6) Pre-diabetes Is this a current diagnosis for this admission?: Yes - Additional Information Discharge Diet: Regular Discharge Activity: Activity As Tolerated Referrals: SIERRA FAJARDO MD [ACTIVE STAFF] - (DX: DVT RIGHT LOWER LEG) Prescriptions: Oxycodone HCl/Acetaminophen [Percocet 5-325 mg Tablet] 1 tab PO Q8 7 Days #21 tab Rivaroxaban [Xarelto] 20 mg PO DAILY 30 Days #30 tablet Rivaroxaban [Xarelto 15 mg Tablet] 15 mg PO BID 20 Days #40 tablet Home Medications: Esomeprazole Magnesium [Nexium] 40 mg PO QHS 08/09/19 Lisinopril 20 mg PO QHS 08/09/19 Metoprolol Succinate [Toprol Xl 50 mg Tab.sr] 50 mg PO QHS 08/09/19 Rivaroxaban [Xarelto 15 mg Tablet] 15 mg PO Q12 08/09/19 Rosuvastatin Calcium [Crestor] 40 mg PO QHS 08/09/19 Sertraline HCl [Zoloft] 200 mg PO QHS 08/09/19 Oxycodone HCl/Acetaminophen [Percocet 5-325 mg Tablet] 1 tab PO Q8 7 Days #21 tab 08/12/19 Rivaroxaban [Xarelto 15 mg Tablet] 15 mg PO BID 20 Days #40 tablet 08/12/19 Rivaroxaban [Xarelto] 20 mg PO DAILY 30 Days #30 tablet 08/12/19 History of Present Illiness History of Present Illness: CANDY MATTHEWS is a 58 year old male past medical history of CAD status post stent placement 2001, hypertension, dyslipidemia, recently diagnosed with DVT and was home sent home on Xarelto. Patient took about 1 month of Xarelto ran out and was not taking Xarelto for 2 weeks. Patient presented to ED at [facility] last Tuesday and was sent home again on Xarelto. Patient has been taking her Xarelto since then however today when he presented to his follow-up appointment with Dr. Dominic Mcnally vascular surgeon he was noted to have extensive right lower extremity swelling, tenderness and an ultrasound was positive for multiple new DVTs. Dr. Dominic Fajardo contacted me and asked for patient to be admitted to the hospital. Patient is stating that first DVT was caused by a fall last February when he fell in the shower hurting his hip. He received multiple injection in his hip which improved his pain but he developed DVT on that leg. He is complaining of right lower extremity swelling, right groin pain, nonradiating, deep and aching, worse with ambulation, 10/10 in severity scale when ambulating, 8/10 with at rest. Denies any shortness of breath, fever, chills, nausea, vomiting, diarrhea, constipation, numbness, tingling, headache, vision changes, or any urinary symptoms. Hospital Course Hospital Course: (1) Deep vein thrombosis, lower right extremity Worsened due to noncompliance. Patient was off of her anticoagulation for 2 weeks. Was admitted telemetry started on IV LMWH and switch to p.o. Xarelto. Vitals remained stable. Right lower extremity swelling improved. 08/05/2019. Right lower extremity venous Doppler positive for acute deep chronic thrombosis and superficial vein thrombosis throughout the visualized veins of the leg. 08/09/2019. CTA chest inconclusive due to late bolus. 08/09/2019. VQ scan negative for any acute pulmonary emboli. Discharge planning consulted. Patient provided with resources for his follow-up and medication assistance. Patient extensively counseled about compliance with his blood thinners. Patient voiced understanding. Does not want to be placed on Coumadin. Patient was provided with another prescription for Xarelto. Patient was asked to follow-up with PCP and Dr. Dominic Fajardo vascular surgeon. (2) Hypertension Euvolemic. Normotensive. Restart home meds. Adjust meds as needed. Outpatient PCP follow-up. (3) CAD (coronary artery disease) Status post PCI 1 stent placement. Denies any anginal symptoms. Restart antiplatelets, KALYN, beta-blockers, statins. (4) Dyslipidemia Restart home meds. (5) Morbid obesity with BMI of 40.0-44.9, adult Diet and lifestyle modification recommended. Likely a candidate for bariatric intervention. TSH 1.70. Hemoglobin A1c 6.1. (6) Pre-diabetes Hemoglobin A1c 6.1%. Diet and lifestyle modification recommended. Outpatient PCP follow-up for reevaluation of A1c. Physical Exam Vital Signs: Temp Pulse Resp BP Pulse Ox 98.8 F 69 20 129/82 H 94 08/12/19 10:22 08/12/19 10:22 08/12/19 10:22 08/12/19 10:22 08/12/19 10:22 Intake & Output 08/11/19 08/12/19 08/13/19 06:59 06:59 06:59 Intake Total 2114 2120 Output Total 1050 900 Balance 1064 1220 Weight 126.3 kg 133.1 kg General appearance: PRESENT: no acute distress, obese, well-developed, well- nourished Head exam: PRESENT: atraumatic, normocephalic Eye exam: PRESENT: conjunctiva pink, EOMI, PERRLA. ABSENT: scleral icterus Ear exam: PRESENT: normal external ear exam Mouth exam: PRESENT: moist, tongue midline Neck exam: ABSENT: carotid bruit, JVD, lymphadenopathy, thyromegaly Respiratory exam: PRESENT: clear to auscultation devi. ABSENT: rales, rhonchi, wheezes Cardiovascular exam: PRESENT: RRR. ABSENT: diastolic murmur, rubs, systolic murmur Pulses: PRESENT: normal dorsalis pedis pul Vascular exam: PRESENT: normal capillary refill GI/Abdominal exam: PRESENT: normal bowel sounds, soft. ABSENT: distended, guarding, mass, organolmegaly, rebound, tenderness Rectal exam: PRESENT: deferred Extremities exam: PRESENT: full ROM. ABSENT: calf tenderness, clubbing, pedal edema Musculoskeletal exam: PRESENT: tenderness - Right lower extremity swelling, rig ht proximal lower extremity medial aspect tenderness. Neurovascularly intact. Neurological exam: PRESENT: alert, awake, oriented to person, oriented to place, oriented to time, oriented to situation, CN II-XII grossly intact. ABSENT: motor sensory deficit Psychiatric exam: PRESENT: appropriate affect, normal mood. ABSENT: homicidal ideation, suicidal ideation Skin exam: PRESENT: dry, intact, warm. ABSENT: cyanosis, rash Results Laboratory Results: WBC 10.2 10^3/uL (4.0-10.5) 08/11/19 04:22 RBC 4.18 10^6/uL (4.35-5.55) L 08/11/19 04:22 Hgb 13.1 g/dL (13.5-17.0) L 08/11/19 04:22 Hct 37.9 % (37.9-51.0) 08/11/19 04:22 MCV 91 fl (80-97) 08/11/19 04:22 MCH 31.3 pg (27.0-33.4) 08/11/19 04:22 MCHC 34.4 g/dL (32.0-36.0) 08/11/19 04:22 RDW 13.4 % (11.5-14.0) 08/11/19 04:22 Plt Count 245 10^3/uL (150-450) 08/11/19 04:22 Lymph % (Auto) 16.4 % (13-45) 08/11/19 04:22 [place] % (Auto) 12.1 % (3-13) 08/11/19 04:22 Eos % (Auto) 3.7 % (0-6) 08/11/19 04:22 Baso % (Auto) 1.0 % (0-2) 08/11/19 04:22 Absolute Neuts (auto) 6.8 10^3/uL (1.7-8.2) 08/11/19 04:22 Absolute Lymphs (auto) 1.7 10^3/uL (0.5-4.7) 08/11/19 04:22 Absolute Monos (auto) 1.2 10^3/uL (0.1-1.4) 08/11/19 04:22 Absolute Eos (auto) 0.4 10^3/uL (0.0-0.6) 08/11/19 04:22 Absolute Basos (auto) 0.1 10^3/uL (0.0-0.2) 08/11/19 04:22 Seg Neutrophils % 66.8 % (42-78) 08/11/19 04:22 PT 16.1 SEC (11.4-15.4) H 08/09/19 13:26 INR 1.28 08/09/19 13:26 APTT 32.7 SEC (23.5-35.8) 08/11/19 04:22 Sodium 138.6 mmol/L (137-145) 08/11/19 04:22 Potassium 4.3 mmol/L (3.6-5.0) 08/11/19 04:22 Chloride 98 mmol/L (98-107) 08/11/19 04:22 Carbon Dioxide 30 mmol/L (22-30) 08/11/19 04:22 Anion Gap 11 (5-19) 08/11/19 04:22 BUN 12 mg/dL (7-20) 08/11/19 04:22 Creatinine 0.66 mg/dL (0.52-1.25) 08/11/19 04:22 Est GFR ( Amer) > 60 (>60) 08/11/19 04:22 Est GFR (MDRD) Non-Af > 60 (>60) 08/11/19 04:22 Glucose 113 mg/dL (75-110) H 08/11/19 04:22 Hemoglobin A1c % 6.1 % (4.7-6.0) H 08/09/19 19:14 Calcium 9.5 mg/dL (8.4-10.2) 08/11/19 04:22 Magnesium 1.9 mg/dL (1.6-2.3) 08/10/19 03:36 Total Bilirubin 0.6 mg/dL (0.2-1.3) 08/10/19 03:36 Direct Bilirubin 0.2 mg/dL (0.0-0.4) 08/10/19 03:36 Neonat Total Bilirubin Not Reportable 08/10/19 03:36 Neonat Direct Bilirubin Not Reportable 08/10/19 03:36 Neonat Indirect Bili Not Reportable 08/10/19 03:36 AST 15 U/L (17-59) L 08/10/19 03:36 ALT 14 U/L (<50) 08/10/19 03:36 Alkaline Phosphatase 63 U/L (38-126) 08/10/19 03:36 Total Protein 6.7 g/dL (6.3-8.2) 08/10/19 03:36 Albumin 3.5 g/dL (3.5-5.0) 08/10/19 03:36 TSH 1.70 uIU/mL (0.47-4.68) 08/09/19 19:14 Urine Color STRAW 08/10/19 17:15 Urine Appearance CLEAR 08/10/19 17:15 Urine pH 6.0 (5.0-9.0) 08/10/19 17:15 Ur Specific [place] 1.004 08/10/19 17:15 Urine Protein NEGATIVE mg/dL (NEGATIVE) 08/10/19 17:15 Urine Glucose (UA) NEGATIVE mg/dL (NEGATIVE) 08/10/19 17:15 Urine Ketones NEGATIVE mg/dL (NEGATIVE) 08/10/19 17:15 Urine Blood SMALL (NEGATIVE) H 08/10/19 17:15 Urine Nitrite NEGATIVE (NEGATIVE) 08/10/19 17:15 Urine Bilirubin NEGATIVE (NEGATIVE) 08/10/19 17:15 Urine Urobilinogen NEGATIVE mg/dL (<2.0) 08/10/19 17:15 Ur Leukocyte Esterase NEGATIVE (NEGATIVE) 08/10/19 17:15 Urine WBC (Auto) 0 /HPF 08/10/19 17:15 Urine RBC (Auto) 1 /HPF 08/10/19 07:05 U Hyaline Cast (Auto) 1 /LPF 08/10/19 07:05 Urine Bacteria (Auto) TRACE /HPF 08/09/19 14:00 Squamous Epi Cells Auto 1 /HPF 08/09/19 14:00 Urine Mucus (Auto) RARE /LPF 08/10/19 17:15 Urine Ascorbic Acid NEGATIVE (NEGATIVE) 08/10/19 17:15 Impressions: Chest/Abdomen CTA 08/09/19 00:00 IMPRESSION: 1. Examination for pulmonary embolism is very limited by poor contrast bolus, main pulmonary artery HU = 119. Limitation, there are areas of low-attenuation that are suspicious for pulmonary embolism, for example in the left lower lobe (series 3, image 70, series 601, 67). Recommend repeat CT to further evaluate. Pulmonary VQ scan is an alternative option. 2. Coronary artery disease. Lung Scan-VQ NM 08/09/19 19:00 IMPRESSION: No evidence of pulmonary embolism. Plan Time Spent: Greater than 30 Minutes Stroke Is this a Stroke Patient?: No Acute Heart Failure - Is this a Heart Failure Patient?: No
== END 2019-08-12 10:45 | disposition home or self-care (01) | DRG 300 ==
LOC: 5 11:53
PROVIDERS: ADMIT Internal Medicine; ATTEND Internal Medicine
DX: I82.401 Acute embolism and thrombosis of unspecified deep veins of right lower extremity (principal); Z68.41 Body mass index [BMI] 40.0-44.9, adult; I10 Essential (primary) hypertension; I25.10 Atherosclerotic heart disease of native coronary artery without angina pectoris; E78.5 Hyperlipidemia, unspecified; E66.01 Morbid (severe) obesity due to excess calories; R73.03 Prediabetes; Z79.899 Other long term (current) drug therapy; Z79.01 Long term (current) use of anticoagulants; Z95.5 Presence of coronary angioplasty implant and graft; Z91.19 Patient's noncompliance with other medical treatment and regimen; Z87.891 Personal history of nicotine dependence
CPT/HCPCS: 36415; 71275; 78582; 80048; 80053; 81001; 83036; 83735; 84443; 85025; 85610; 85730; 93005; 93010; A9540; A9567; J1644; J1650; J2270; J3490; Q9969